=== PATIENT | female | born 1975 | race Caucasian/White ===

== ENCOUNTER 2016-06-21 08:54 | Emergency (ER) | payer BC, OTHER ==
[2016-06-21 09:09] VITALS: BMI 30.2
--- NOTE | 2016-06-21 09:26 | PDOC ---
History of Present Illness <OpalGavino doughertyi - Last Filed: 06/21/16 13:11> - General History Source: Patient Exam Limitations: No Limitations - History of Present Illness Travel History: No Initial Comments: 06/21/16 09:51 41y F history of acid reflux, vertigo presents with a complaint of epigastric pain rating to the throat that she describes as a burning. The patient states that she has a history history of acid reflux but the pain has been significantly worse over the past 4 days in that it is more constant and unremitting, it is worse in the evenings, and the patient saw her primary care doctor yesterday who increased her omeprazole from 20 mg to 40 mg. The patient also has an appointment scheduled with GI on July 04 for further evaluation. The patient endorses nausea occasionally denies any vomiting, fevers, chills, melena, blood per rectum, dysuria. The patient states that the nature of her pain is similar to her acid reflux in the past. There is no associated shortness of breath, worsening of her symptoms on exertion. The patient denies any alcohol abuse, denies any NSAID or aspirin abuse. 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, vertigo - Psycho/Social/Smoking Cessation Hx Suicidal Ideation: No Smoking History: Never smoked Information on smoking cessation initiated: No Hx Alcohol Use: No Drug/Substance Use Hx: No Substance Use Type: None <Will Zuleta - Last Filed: 06/21/16 14:35> - Past Medical History Allergies/Adverse Reactions: Allergies Allergy/AdvReac Type Severity Reaction Status Date / Time No Known Allergies Allergy Verified 06/21/16 09:07 Review of Systems - Review of Systems Able to Perform ROS?: Yes Comments:: 06/21/16 09:53 Constitutional - no reported Fever, Chills, weakness, HEENT: no reported vision changes, sore throat Respiratory: no reported cough, sob, hemoptysis Cardiac: no reported chest pain, palpitations, light headedness, leg swelling Abd/GI: + abd pain, nausea, no reported vomiting, blood per rectum, melena, diarrhea : no reported dysuria, frequency, discharge Musculskelatal - no reported back pain, joint swelling skin - no reported bruising, erythema, rash neurological: no reported headache, numbness, focal weakness, tingling, ataxia, weakness hematologic: no reported anemia, easy bruising, easy bleeding <Merlyn,Will - Last Filed: 06/21/16 14:35> *Physical Exam - Vital Signs Last Vital Signs Temp Pulse Resp BP Pulse Ox 98.1 F 64 17 145/72 99 06/21/16 09:06 06/21/16 09:06 06/21/16 09:06 06/21/16 09:06 06/21/16 09:06 <Edie Joseph - Last Filed: 06/21/16 13:11> - Vital Signs Last Vital Signs Temp Pulse Resp BP Pulse Ox 98.1 F 64 17 145/72 99 06/21/16 09:06 06/21/16 09:06 06/21/16 09:06 06/21/16 09:06 06/21/16 09:06 - Physical Exam Comments: 06/21/16 09:53 GENERAL: The patient is awake, alert, and fully oriented, Nontoxic - in no acute distress. HEAD: Normocephalic, atraumatic. EYES: extraocular movements intact, sclera anicteric, conjunctiva clear. ENT: Normal voice, Moist mucous membranes. NECK: Normal range of motion, supple LUNGS: Breath sounds equal, clear to auscultation bilaterally. No wheezes, no rhonchi, no rales. HEART: Regular rate and rhythm, normal S1 and S2 without murmur, rub or gallop. ABDOMEN: mild epigastric tenderness, neg mcburneys point tenderness, Soft, normoactive bowel sounds. No guarding, no rebound. . No CVA tenderness EXTREMITIES: Normal range of motion, no edema. No clubbing or cyanosis. No cords, erythema, or tenderness. NEUROLOGICAL: No facial assymetry, Normal speech, PSYCH: Normal mood, normal affect. SKIN: Warm, Dry, normal turgor, <Merlyn,Will - Last Filed: 06/21/16 14:35> Heart Score/ECG Review - ECG Impressions Comment:: 06/21/16 13:15 Twelve-lead EKG was performed and reviewed by me. There is normal sinus rhythm with a normal rate. Rate of 62 The axis is normal. The intervals are normal. There is normal R wave progression There are no ST or T wave abnormalities. Impression: Normal twelve-lead EKG <Will Zuleta - Last Filed: 06/21/16 14:35> ED Treatment Course - LABORATORY CBC & Chemistry Diagram: 06/21/16 10:26 06/21/16 10:26 - ADDITIONAL ORDERS Additional order review: Laboratory Results 06/21/16 06/21/16 10:30 10:26 Sodium Cancelled Potassium Cancelled Chloride Cancelled Carbon Dioxide Cancelled Anion Gap Cancelled BUN Cancelled Creatinine Cancelled Creat Clearance w eGFR Cancelled Random Glucose Cancelled Calcium Cancelled Total Bilirubin Cancelled AST Cancelled ALT Cancelled Alkaline Phosphatase Cancelled Total Protein Cancelled Albumin Cancelled Lipase Cancelled Urine Color Ltyellow Urine Appearance Clear Urine pH 7.0 Ur Specific Bethany 1.014 Urine Protein Negative Urine Glucose (UA) Negative Urine Ketones Negative Urine Blood 3+ H Urine Nitrite Negative Urine Bilirubin Negative Urine Urobilinogen Negative Ur Leukocyte Esterase Negative Urine RBC 45 Urine WBC 1 Ur Epithelial Cells Rare Urine Mucus Rare 06/21/16 10:26 RBC 4.83 MCV 86.5 MCHC 33.1 RDW 13.1 MPV 10.7 Neutrophils % 68.4 Lymphocytes % 24.0 Monocytes % 6.2 Eosinophils % 0.5 Basophils % 0.9 - RADIOLOGY Radiology Studies Ordered: 06/21/16 13:11 Gallbladder Ultrasound As reviewed by Dr. Aleksey Rodriguez IMPRESSION: No definite abnormality is identified. - Medications Given in the ED: ED Medications Discontinued Medications Generic Name Dose Route Start Last Admin Trade Name Freq PRN Reason Stop Dose Admin Al Hydroxide/Mg Hydroxide 30 ml 06/21/16 09:27 06/21/16 10:34 Mylanta Suspension - PO 06/21/16 09:28 30 mg ONCE ONE Administration Pantoprazole Sodium 40 mg/ 100 mls @ 200 mls/hr 06/21/16 09:27 06/21/16 10:34 Sodium Chloride IVPB 06/21/16 09:56 200 mls/hr ONCE ONE Administration Sodium Chloride 1,000 mls @ 1,000 mls/hr 06/21/16 09:50 06/21/16 11:00 Normal Saline - IV 06/21/16 10:49 1,000 mls/hr .Q1H ONE Administration <Edie Joseph - Last Filed: 06/21/16 13:11> - LABORATORY CBC & Chemistry Diagram: 06/21/16 10:26 06/21/16 12:40 <Will Zuleta - Last Filed: 06/21/16 14:35> Medical Decision Making - Medical Decision Making 06/21/16 09:53 likely acid reflux, consider possible pancreatitis, acs will treat with protonix, maalox galina r/o pancreatitis, will ck lfts atypical for acs - but will obtain screening ekg will reassess 06/21/16 13:37 pt feeling improved tolerating oral intake labs reviewed US negative for gb pathology will dc with pmd and GI fu will have the pt continue her newly increased dose of omeprazole return precautions were discussed I discussed the physical exam findings, ancillary test results and final diagnoses with the patient. I answered all of the patient's questions. The patient was satisfied with the care received and felt comfortable with the discharge plan and treatment plan. The patient will call their primary care physician within 24 hours to arrange follow-up and will return to the Emergency Department with any new, persistent or worsening symptoms. <Will Zuleta - Last Filed: 06/21/16 14:35> *DC/Admit/Observation/Transfer <Edie Joseph - Last Filed: 06/21/16 13:11> - Discharge Dispostion Admit: No <Will Zuleta - Last Filed: 06/21/16 14:35> Diagnosis at time of Disposition: GERD (gastroesophageal reflux disease) Qualifiers: Esophagitis presence: esophagitis presence not specified Qualified Code(s): K21.9 - Gastro-esophageal reflux disease without esophagitis - Discharge Dispostion Disposition: HOME Condition at time of disposition: Improved - Referrals Referrals: David Bergeron MD [Primary Care Provider] - Yovani Nevarez MD [Staff Physician] - - Patient Instructions Printed Discharge Instructions: GERD Diet, DI for Gastroesophageal Reflux Disease (GERD) Additional Instructions: Return to the emergency department immediately with ANY new, persistent or worsening symptoms including any recurrent abdominal pain, fevers, chills, inability to tolerate oral intake or any other concerns. Stay away from alcohol, spicy foods, caffeine, acidic/sour foods. Take maalox if you have burning for relief. 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 Results were discussed with you. Please make sure your doctor reviews the results of your emergency evaluation. Print Language: LIBERIAN
[2016-06-21] MEDS ORDERED: MAG HYDROX/AL HYDROX/SIMETH 355 ML ORAL.SUSP PO ONE (09:27)
[2016-06-21] MEDS ORDERED: PANTOPRAZOLE SODIUM 40 MG in SODIUM CHLORIDE 100 ML IVPB ONE (09:27)
[2016-06-21] MEDS ORDERED: SODIUM CHLORIDE 1,000 ML IV ONE (09:50)
[2016-06-21] MEDS ORDERED: MAG HYDROX/AL HYDROX/SIMETH 30 ML UNIT-DOSE CUP ONE (10:33)
[2016-06-21] MEDS ORDERED: PANTOPRAZOLE SODIUM 40 MG VIAL ONE (10:33)
[2016-06-21 10:40] LABS: BASOPHIL 0.9 % (0-2.0); EOSINOPHIL 0.5 % (0-4.5); MCH 28.6 pg (25.7-33.7); MCHC 33.1 g/dl (32.0-36.0); MEAN CELL VOLUME 86.5 fl (80-96); MEAN PLT VOLUME 10.7 fl (7.5-11.1); NEUTROPHILS 68.4 % (42.8-82.8); PLATELET COUNT 237 K/MM3 (134-434); RDW 13.1 % (11.6-15.6); WHITE BLOOD COUNT 6.2 K/mm3 (4.0-10.0)
[2016-06-21 11:08] LABS: URINE APPEARANCE CLEAR; URINE BILIRUBIN NEGATIVE (NEGATIVE); URINE COLOR LTYELLOW; URINE GLUCOSE (UA) NEGATIVE (NEGATIVE); URINE KETONE NEGATIVE (NEGATIVE); URINE LEUK ESTERASE NEGATIVE (NEGATIVE); URINE NITRITE NEGATIVE (NEGATIVE); URINE PROTEIN NEGATIVE (NEGATIVE); URINE UROBILINOGEN NEGATIVE E.U./dl (0.2-1.0)
[2016-06-21 11:15] LABS: URINE BLOOD 3+ (NEGATIVE)
[2016-06-21 11:17] LABS: URINE MUCUS RARE; URINE RBC 45 /hpf (0-3); URINE WBC 1 /hpf (3-5)
[2016-06-21 13:19] LABS: ALBUMIN 3.3 g/dl (3.4-5.0); ALK PHOS 71 U/L (45-117); ANION GAP 10 (8-16); BILIRUBIN,TOTAL 0.4 mg/dL (0.2-1.0); CALCIUM 8.3 mg/dL (8.5-10.1); CO2 24 mmol/L (21-32); CREATININE 0.6 mg/dL (0.55-1.02); GLUCOSE,RANDOM 81 mg/dL (74-106); SGOT/AST 10 U/L (15-37); SGPT/ALT 14 U/L (12-78); TOT PROT 6.4 g/dl (6.4-8.2)
[2016-06-21 14:07] VITALS: BP 132/76; PULSE 72; TEMP 2
--- NOTE | 2016-06-21 20:59 | EKG ---
Test Reason : Blood Pressure : / mmHG Vent. Rate : 062 BPM Atrial Rate : 062 BPM P-R Int : 152 ms QRS Dur : 068 ms QT Int : 410 ms P-R-T Axes : 081 061 049 degrees QTc Int : 416 ms NORMAL SINUS RHYTHM NORMAL ECG NO PREVIOUS ECGS AVAILABLE Confirmed by CHING CALLE MD ([id number]) on 06/21/2016 8:58:57 PM Referred By: Confirmed By:CHING CALLE MD
== END 2016-06-21 14:36 | disposition home or self-care (01) ==
LOC: JER 08:54
PROC: 3E0337Z Introduction of Electrolytic and Water Balance Substance into Peripheral Vein, Percutaneous Approach (ICD-10-PCS; principal; 2016-06-21)
PROC: 3E033GC Introduction of Other Therapeutic Substance into Peripheral Vein, Percutaneous Approach (ICD-10-PCS; 2016-06-21)
DX: K21.9 Gastro-esophageal reflux disease without esophagitis (principal)
CPT/HCPCS: 36415; 76705-TC; 80053; 81003; 81015; 83690; 84703; 85025; 93005; 93010; 99282-25

== ENCOUNTER → 2016-09-26 | Emergency (ER) | payer BC, OTHER ==
[~2016-09-26] MED LIST: ALBUTEROL SO4 2.5/IPRATROPIUM 0.5 INH SOL 3 ML VIAL.NEB. NEB ONE; LORATADINE 10 MG TABLET ONE; LORATADINE 10 MG TABLET PO ONE
[2016-09-26 14:14] VITALS: BP 117/73; PULSE 59; TEMP 98; BMI 29.9
--- NOTE | 2016-09-26 14:30 | PDOC ---
History of Present Illness - General History Source: Patient Exam Limitations: No Limitations - History of Present Illness Initial Comments: CHIEF COMPLAINT: 41 y/o afebrile female with no significant PMH c/o SOB and cough for the past 3 days. HISTORY OF PRESENT ILLNESS: The patient states a dry cough started first. She then began feeling short of breath if she tries talking for too long. She states it feels like she's trying to catch her breath. She denies all other symptoms including f/c, MACIEL, neck pain, runny nose, watery eyes, sore throat, n/v /d, CP, palpitations, abd pain, back pain. The patient is a never smoker. Vital signs on arrival are within normal limits. REVIEW OF SYSTEMS: GENERAL/CONSTITUTIONAL: No fever/chills. No weakness. No weight change. HEAD, EYES, EARS, NOSE AND THROAT: No change in vision. No ear pain or discharge. No sore throat. CARDIOVASCULAR: No chest pain. +SOB RESPIRATORY: +dry cough. No wheezing, or hemoptysis. GASTROINTESTINAL: No abd pain, nausea, vomiting, diarrhea. GENITOURINARY: No dysuria, frequency, or change in urination. MUSCULOSKELETAL: No joint or muscle swelling or pain. No neck or back pain. SKIN: No rash or easy bruising. NEUROLOGIC: No headache, vertigo, loss of consciousness, or loss of sensation. PHYSICAL EXAM: GENERAL: The patient is awake, alert, and fully oriented, in no acute distress. She is very well appearing, ambulatory, in NAD or obvious discomfort. No cough in the ER. Pt speaks in full sentences without difficulty. HEAD: Normal with no signs of trauma. ENT: Pupils equal, round and reactive to light, extraocular movements intact, sclera anicteric, conjunctiva clear. Neck supple. LUNGS: Clear to auscultation bilaterally. Normal excursion. No respiratory distress or use of accessory muscles. CV: RRR, S1/S2, no MRG. Cap refill < 2 sec. ABDOMEN: Soft, non-distended, non-tender even to deep palpation, no hepatomegaly or splenomegaly, no masses. EXTREMITIES: Normal range of motion, no edema. NEUROLOGICAL: Normal speech, normal gait. CN II-XII grossly intact. PSYCH: Normal mood, normal affect. SKIN: Warm, dry, normal turgor, no rashes or lesions noted. <Mary Joaquin - Last Filed: 09/26/16 16:32> <Mirela Ocampo - Last Filed: 09/27/16 15:41> - General Chief Complaint: Chest Pain Stated Complaint: CHEST PAIN/DIFFICULTY BREATHING Time Seen by Provider: 09/26/16 14:25 Past History - Past Medical History Other medical history: VERTIGO - Psycho/Social/Smoking Cessation Hx Suicidal Ideation: No Smoking History: Never smoked Hx Alcohol Use: No Drug/Substance Use Hx: No Substance Use Type: None <Mary Joaquin - Last Filed: 09/26/16 16:32> <Mirela Ocampo - Last Filed: 09/27/16 15:41> - Past Medical History Allergies/Adverse Reactions: Allergies Allergy/AdvReac Type Severity Reaction Status Date / Time No Known Allergies Allergy Verified 09/26/16 13:27 Home Medications: Ambulatory Orders Albuterol Sulfate Inhaler - [Ventolin HFA Inhaler -] 1 puff IH Q6H #1 inhaler *Physical Exam - Vital Signs Last Vital Signs Temp Pulse Resp BP Pulse Ox 98.0 F 59 L 18 117/73 98 09/26/16 13:25 09/26/16 13:25 09/26/16 13:25 09/26/16 13:25 09/26/16 13:25 <Mary Joaquin - Last Filed: 09/26/16 16:32> - Vital Signs Last Vital Signs Temp Pulse Resp BP Pulse Ox 98.0 F 59 L 18 117/73 98 09/26/16 13:25 09/26/16 13:25 09/26/16 13:25 09/26/16 13:25 09/26/16 13:25 <Mirela Ocampo - Last Filed: 09/27/16 15:41> ED Treatment Course - Medications Given in the ED: ED Medications Discontinued Medications Generic Name Dose Route Start Last Admin Trade Name Freq PRN Reason Stop Dose Admin Albuterol/Ipratropium 1 amp 09/26/16 14:37 09/26/16 14:57 Duoneb - NEB 09/26/16 14:38 1 amp ONCE ONE Administration Loratadine 10 mg 09/26/16 14:37 09/26/16 15:01 Claritin - PO 09/26/16 14:38 10 mg ONCE ONE Administration <Mirela Ocampo - Last Filed: 09/27/16 15:41> Medical Decision Making - Medical Decision Making A/P: 41 y/o afebrile female with SOB and dry cough for the past 3 days. Suspect possible seasonal allergies. Plan is as follows: 1. Duoneb 2. PO Claritin The patient states she feels much better after having claritin and Duoneb. I will discharge her to home with rx for albuterol inhaler and suggested she take daily OTC allergy meds for the next week. Instructed her to return to the ER immediately with any worsening or concerning symptoms. The patient verbalizes understanding of all instructions, has no further questions and is awaiting discharge. <Mary Joaquin - Last Filed: 09/26/16 16:32> *DC/Admit/Observation/Transfer <Mary Joaquin - Last Filed: 09/26/16 16:32> - Attestations Physician Attestion: I reviewed the case with the mid-level practitioner and agree with the mid- level practitioner's assessment, diagnosis and disposition. <Mirela Ocampo - Last Filed: 09/27/16 15:41> Diagnosis at time of Disposition: Shortness of breath, Cough Seasonal allergies Qualifiers: Allergic rhinitis trigger: unspecified Qualified Code(s): J30.2 - Other seasonal allergic rhinitis - Discharge Dispostion Disposition: HOME Condition at time of disposition: Improved - Prescriptions Prescriptions: Albuterol Sulfate Inhaler - [Ventolin HFA Inhaler -] 1 puff IH Q6H #1 inhaler - Referrals Referrals: David Bergeron MD [Primary Care Provider] - Call tomorrow - Patient Instructions Printed Discharge Instructions: DI for Shortness of Breath, DI for Cough -- Adult, Allergies (Alternative Therapy) Additional Instructions: Discharge Instructions: -A prescription for an inhaler has been sent to your pharmacy; please take as prescribed -Take over the counter Claritin or Zyrtec every morning for the next 1 week -Call Dr. Bergeron on Thursday to schedule follow up appointment -Return to the ER immediately with any worsening or concerning symptoms - Post Discharge Activity Work/School Note: Back to Work
--- NOTE | 2016-09-27 19:19 | EKG ---
Test Reason : Blood Pressure : / mmHG Vent. Rate : 064 BPM Atrial Rate : 064 BPM P-R Int : 142 ms QRS Dur : 070 ms QT Int : 428 ms P-R-T Axes : -55 038 019 degrees QTc Int : 441 ms UNUSUAL P AXIS, POSSIBLE ECTOPIC ATRIAL RHYTHM ABNORMAL ECG WHEN COMPARED WITH ECG OF 21-JUN-2016 12:49, ECTOPIC ATRIAL RHYTHM HAS REPLACED SINUS RHYTHM NONSPECIFIC T WAVE ABNORMALITY NOW EVIDENT IN INFERIOR LEADS Confirmed by CHING CALLE MD ([id number]) on 09/27/2016 7:18:24 PM Referred By: Confirmed By:CHING CALLE MD
--- NOTE | 2016-10-04 15:41 | EKG ---
Test Reason : Blood Pressure : / mmHG Vent. Rate : 055 BPM Atrial Rate : 055 BPM P-R Int : 156 ms QRS Dur : 070 ms QT Int : 424 ms P-R-T Axes : 078 048 055 degrees QTc Int : 405 ms SINUS BRADYCARDIA POSSIBLE LEFT ATRIAL ENLARGEMENT LOW VOLTAGE QRS BORDERLINE ECG WHEN COMPARED WITH ECG OF 21-JUN-2016 12:49, NO SIGNIFICANT CHANGE WAS FOUND Confirmed by GEOVANNA GALLEGO, YARA ([id number]) on 10/04/2016 3:41:14 PM Referred By: Confirmed By:YARA AUSTIN MD
== END | disposition home or self-care (01) ==
LOC: JER 13:23
PROC: 3E0F7GC Introduction of Other Therapeutic Substance into Respiratory Tract, Via Natural or Artificial Opening (ICD-10-PCS; principal; 2016-09-26)
DX: J30.2 Other seasonal allergic rhinitis (principal)
CPT/HCPCS: 93005; 93010; 99281-25

== ENCOUNTER 2016-10-01 15:16 | Emergency (ER) | payer BC, OTHER ==
[2016-10-01 15:24] VITALS: BMI 29.9
[2016-10-01] MEDS ORDERED: ALBUTEROL SO4 2.5/IPRATROPIUM 0.5 INH SOL 3 ML VIAL.NEB. NEB ONE ×2 (16:28→16:33)
--- NOTE | 2016-10-01 16:44 | PDOC ---
History of Present Illness - General History Source: Patient Exam Limitations: No Limitations - History of Present Illness Initial Comments: 10/01/16 17:25 The patient is a 41-year-old female, with a history of seasonal allergies, who presents to the ED with chest pain and tightness and shortness of breath. The patient was seen in the ED 2 days ago and was prescribed an albuterol inhaler ( took once with no improvement) and singulair for asthma/bronchitis. Pt saw Dr. David Killian yesterday and had an EKG performed that came out normal. PCP also prescribed the patient montekulast. Pt reports to the ED today with persistent chest pain and tightness accompanied by sore throat (only at night) and tingling in fingers. Pt reports that her last stress test was a month ago that was normal. Pt denies any nausea, vomiting, diarrhea, or abdominal pain. Pt denies any leg swelling. Denies any hx of pe or dvt Family Hx: Heart Disease <Komal Orozco - Last Filed: 10/01/16 17:25> <Lisa Mcmullen - Last Filed: 10/01/16 19:42> - General Chief Complaint: Shortness of Breath Stated Complaint: SOB Past History <Komal Orozco - Last Filed: 10/01/16 17:25> - Past Medical History Seizures: Yes (CHILD) Other medical history: VERTIGO - Psycho/Social/Smoking Cessation Hx Anxiety: No Suicidal Ideation: No Smoking History: Never smoked Hx Alcohol Use: No Drug/Substance Use Hx: No Substance Use Type: None <Lisa Mcmullen - Last Filed: 10/01/16 19:42> - Past Medical History Allergies/Adverse Reactions: Allergies Allergy/AdvReac Type Severity Reaction Status Date / Time No Known Allergies Allergy Verified 10/01/16 15:24 Home Medications: Ambulatory Orders Albuterol Sulfate Inhaler - [Ventolin HFA Inhaler -] 1 puff IH Q6H #1 inhaler Fluticasone Prop 0.05% Nasal [Flonase -] 1 spray NS DAILY #1 bot 10/01/16 Montelukast Na [Singulair -] 10 mg PO HS 10/01/16 Review of Systems - Review of Systems Able to Perform ROS?: Yes Comments:: 10/01/16 17:26 GENERAL/CONSTITUTIONAL: No fever or chills. No weakness. HEAD, EYES, EARS, NOSE AND THROAT: No change in vision. No ear pain or discharge. +sore throat. CARDIOVASCULAR: +chest pain, shortness of breath. RESPIRATORY: No cough, wheezing, or hemoptysis. SKIN: No rash GASTROINTESTINAL: No nausea, vomiting, diarrhea or constipation. GENITOURINARY: No dysuria, frequency, or change in urination. MUSCULOSKELETAL: No joint or muscle swelling or pain. No neck or back pain. NEUROLOGIC: No headache, vertigo, loss of consciousness. +finger tingling ENDOCRINE: No increased thirst. No abnormal weight change. HEMATOLOGIC/LYMPHATIC: No anemia, easy bleeding, or history of blood clots. ALLERGIC/IMMUNOLOGIC: No hives or skin allergy. <Komal Orozco - Last Filed: 10/01/16 17:25> *Physical Exam - Vital Signs Last Vital Signs Temp Pulse Resp BP Pulse Ox 99.6 F 78 24 126/68 99 10/01/16 15:22 10/01/16 15:22 10/01/16 15:22 10/01/16 15:22 10/01/16 15:22 - Physical Exam Comments: 10/01/16 17:26 GENERAL: Awake, alert, and fully oriented, in no acute distress HEAD: No signs of trauma ENT: Auricles normal inspection, hearing grossly normal. +turbinate enlargement , posterior pharynx cobblestoning. EYES: PERRLA, EOMI, sclera anicteric, conjunctiva clear without exudates. Moist mucosa. NECK: Normal ROM, supple, no lymphadenopathy, JVD, or masses LUNGS: Breath sounds equal, clear to auscultation bilaterally. No wheezes, and no crackles HEART: Regular rate and rhythm, normal S1 and S2, no murmurs, rubs or gallops ABDOMEN: Soft, nontender, normoactive bowel sounds. No guarding, no rebound. No masses EXTREMITIES: Normal range of motion, no edema. No clubbing or cyanosis. No cords, erythema, or tenderness NEUROLOGICAL: Cranial nerves II through XII grossly intact. Normal speech. SKIN: Warm, Dry, normal turgor, no rashes or lesions noted <Komal Orozco - Last Filed: 10/01/16 17:25> - Vital Signs Last Vital Signs Temp Pulse Resp BP Pulse Ox 99.6 F 78 24 126/68 99 10/01/16 15:22 10/01/16 15:22 10/01/16 15:22 10/01/16 15:22 10/01/16 15:22 <Lisa Mcmullen - Last Filed: 10/01/16 19:42> ED Treatment Course - LABORATORY CBC & Chemistry Diagram: 10/01/16 16:49 10/01/16 16:49 - ADDITIONAL ORDERS Additional order review: Laboratory Results 10/01/16 16:55 Urine HCG, Qual Negative - Medications Given in the ED: ED Medications Discontinued Medications Generic Name Dose Route Start Last Admin Trade Name Freq PRN Reason Stop Dose Admin Albuterol/Ipratropium 1 amp 10/01/16 16:28 10/01/16 16:35 Dumiriam - NEB 10/01/16 16:29 1 amp ONCE ONE Administration <Komal Orozco - Last Filed: 10/01/16 17:25> - LABORATORY CBC & Chemistry Diagram: 10/01/16 16:49 10/01/16 16:49 - RADIOLOGY Radiology Studies Ordered: Category Date Time Status CHEST PA & LAT [RAD] Stat Radiology 10/01/16 16:28 Ordered - Medications Given in the ED: ED Medications Discontinued Medications Generic Name Dose Route Start Last Admin Trade Name Freq PRN Reason Stop Dose Admin Albuterol/Ipratropium 1 amp 10/01/16 16:28 10/01/16 16:35 Duoneb - NEB 10/01/16 16:29 1 amp ONCE ONE Administration <Lisa Mcmullen - Last Filed: 10/01/16 19:42> Medical Decision Making - Medical Decision Making 10/01/16 16:39 41 yo F with h/o seasonal allergies here wtih c/o chest pain and tightness, was seen 2 days ago in ed, given albuterol inhaler for bronchitis/ asthma. pt no known ho tobacco use. no prior asthma. saw Dr. Fernando Killian yestserday, who performed ekg which was normal. added montelukast. pt states today still having chest pain and tightness. does have pm sore throat. no fever no chills. no leg swelling no h/o pe or dvt. no travel. does have fam h/o cad in 40's. no improvement with albuterol used once, or singulair. does have tinling in fingers. had stress test onemonth ago which was normal. 10/01/16 16:44 physical exam awake alert . bilat nasal turbinate enlargement. post pharynx cobblestoning. lungs clear bilaterally. no exudate. lungs clear. heart RRR. abd soft NT. legs no edema no calf tenderness. differential: infection, allergici rhinitis/ bronchitis, pna, acs ( less likely ) pe. plan d dimer ekg trop labs. cxr reassess. will d/w dr killian. 10/01/16 19:26 pt labs unremarkablc. cxr negative. d dimer negative. trop and ekg normal. will dc home follow up wt dr. killian. 10/01/16 19:40 d/w dr. killian. <Lisa Mcmullen - Last Filed: 10/01/16 19:42> *DC/Admit/Observation/Transfer - Attestations Scribe Attestion: 10/01/16 17:29 Documentation prepared by Komal Orozco, acting as medical services coordinator for Lisa Mcmullen MD. <Komal Orozco - Last Filed: 10/01/16 17:25> - Discharge Dispostion Admit: No <Lisa Mcmullen - Last Filed: 10/01/16 19:42> Diagnosis at time of Disposition: Allergic rhinitis, Bronchitis - Discharge Dispostion Disposition: HOME - Prescriptions Prescriptions: Fluticasone Prop 0.05% Nasal [Flonase -] 1 spray NS DAILY #1 bot - Referrals Referrals: David Killian MD [Primary Care Provider] - - Patient Instructions Printed Discharge Instructions: Acute Bronchitis, Allergic Rhinitis Additional Instructions: use flonase one spray each nostril daily. 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 continue using albuterol inhaler 2 puffs every 6 hours as needed for wheezing or cough. continue taking montelukast. all test today and chest xray are normal. return for any problems or concerns.
[2016-10-01 16:52] LABS: BASOPHIL 0.4 % (0-2.0); EOSINOPHIL 0.1 % (0-4.5); MCHC 32.9 g/dl (32.0-36.0); MEAN CELL VOLUME 88.1 fl (80-96); MEAN PLT VOLUME 9.8 fl (7.5-11.1); NEUTROPHILS 82.3 % (42.8-82.8); PLATELET COUNT 230 K/MM3 (134-434); WHITE BLOOD COUNT 14.2 K/mm3 (4.0-10.0)
[2016-10-01 17:30] LABS: ALBUMIN 3.8 g/dl (3.4-5.0); ANION GAP 9 (8-16); CALCIUM 9.4 mg/dL (8.5-10.1); CO2 26 mmol/L (21-32); COCKROFT - GAULT 114.3505; CREATININE 0.7 mg/dL (0.55-1.02); GLUCOSE,RANDOM 88 mg/dL (74-106); SGOT/AST 16 U/L (15-37); SGPT/ALT 16 U/L (12-78)
[2016-10-01 17:34] LABS: ALK PHOS 89 U/L (45-117); BILIRUBIN,TOTAL 0.6 mg/dL (0.2-1.0); TOT PROT 7.4 g/dl (6.4-8.2); TROPONIN I < 0.02 ng/ml (0.00-0.05)
[2016-10-01 20:07] VITALS: BP 124/88; PULSE 72; TEMP 98.2
--- NOTE | 2016-10-02 10:32 | EKG ---
Test Reason : Blood Pressure : / mmHG Vent. Rate : 067 BPM Atrial Rate : 067 BPM P-R Int : 136 ms QRS Dur : 072 ms QT Int : 416 ms P-R-T Axes : -45 049 016 degrees QTc Int : 439 ms UNUSUAL P AXIS, POSSIBLE ECTOPIC ATRIAL RHYTHM ABNORMAL ECG WHEN COMPARED WITH ECG OF 26-SEP-2016 15:25, NO SIGNIFICANT CHANGE WAS FOUND Confirmed by LOREN MANE MD ([id number]) on 10/02/2016 10:32:11 AM Referred By: Confirmed By:LOREN MANE MD
== END 2016-10-01 20:07 | disposition home or self-care (01) ==
LOC: JER 15:16
PROC: 3E0F7GC Introduction of Other Therapeutic Substance into Respiratory Tract, Via Natural or Artificial Opening (ICD-10-PCS; principal; 2016-10-01)
DX: J40 Bronchitis, not specified as acute or chronic (principal); J30.2 Other seasonal allergic rhinitis
CPT/HCPCS: 36415; 71020-TC; 80053; 82550; 84484; 84703; 85025; 85379; 93005; 93010; 99284-25

== ENCOUNTER 2016-12-17 21:12 | Emergency (ER) | payer BC, OTHER ==
[2016-12-17 21:21] VITALS: BP 117/77; PULSE 64; TEMP 98; BMI 25.4
--- NOTE | 2016-12-17 23:30 | PDOC ---
Attending Attestation - Medical Decision Making 12/17/16 23:[address] David Bergeron (via answering service) and patient's case was discussed with Dr. Hipolito Costa. <Ifeoma Mendoza - Last Filed: 12/17/16 23:34> - Resident Resident Name: Hipolito Costa - ED Attending Attestation I have performed the following: I have examined & evaluated the patient, The case was reviewed & discussed with the resident, I agree w/resident's findings & plan, Exceptions are as noted - Physicial Exam PE: 12/18/16 19:30 Physical Exam General Appearance: Yes: Appropriately Dressed. No: Apparent Distress, Intoxicated HEENT: positive: EOMI, TOI, Normal ENT Inspection, Normal Voice, TMs Normal, Pharynx Normal. negative: Pale Conjunctivae, Photophobia, Scleral Icterus (R), Scleral Icterus (L) Neck: positive: Trachea midline, Normal Thyroid, Supple. negative: Tender, Rigid, Carotid bruit, Stridor, Lymphadenopathy (R), Lymphadenopathy (L), Thyromegaly Respiratory/Chest: positive: Lungs Clear, Normal Breath Sounds. negative: Chest Tender, Respiratory Distress, Accessory Muscle Use, Labored Respiration, RES, Crackles, Rales, Rhonchi, Stridor, Wheezing, Dullness Cardiovascular: positive: Regular Rhythm, Regular Rate, S1, S2. negative: Edema , JVD, Murmur, Bradycardia, Tachycardia Vascular Pulses: Dorsalis-Pedis (R): 2+, Doralis-Pedis (L): 2+ Gastrointestinal/Abdominal: positive: Normal Bowel Sounds, Flat, Soft. negative : Tender, Organomegaly, Pulsatile Mass, Increased Bowel Sounds, Decreased BS, Distended, Guarding, Rebound, Hernia, Hepatomegaly, Spleenomegaly Lymphatic: negative: Adenopathy, Tenderness Musculoskeletal: positive: Normal Inspection. negative: CVA Tenderness, Decreased Range of Motion Extremity: positive: Normal Capillary Refill, Normal Inspection, Normal Range of Motion, Pelvis Stable. negative: Tender, Pedal Edema, Swelling, Erythema Integumentary: positive: Normal Color, Dry, Warm. 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 negative: EOM Palsy, Facial Droop, Sensory Deficit <Donny Narvaez - Last Filed: 12/18/16 19:31>
--- NOTE | 2016-12-17 23:38 | PDOC ---
History of Present Illness - General Chief Complaint: Lightheaded Stated Complaint: FATIGUE Time Seen by Provider: 12/17/16 23:10 History Source: Patient Exam Limitations: No Limitations - History of Present Illness Initial Comments: 12/17/16 23:30 The patient is a 41F with a PMH of vertigo who presents with headache x 5 days. She is a patient of Dr. David Bergeron who got a phone call from the patient and wanted the patient to come to the ED for further evaluation. Her headache starts unilaterally on the temporal side, then becomes bilaterally, is constant , worse at night, is described as a sharp and pressure-like headache, and is associated with nausea and lightheadedness. She was worked up 4 months ago for vertigo. She also is complaining of numbness in her R middle toe. All: none Past History - Past Medical History Allergies/Adverse Reactions: Allergies Allergy/AdvReac Type Severity Reaction Status Date / Time No Known Allergies Allergy Verified 12/17/16 21:18 Home Medications: Ambulatory Orders NK [No Known Home Medication] 12/18/16 Seizures: Yes (CHILD) - Psycho/Social/Smoking Cessation Hx Anxiety: No Suicidal Ideation: No Smoking History: Never smoked Have you smoked in the past 12 months: No Information on smoking cessation initiated: No Hx Alcohol Use: No Drug/Substance Use Hx: No Substance Use Type: None Review of Systems - Review of Systems Able to Perform ROS?: Yes Is the patient limited Ukrainian proficient: No Constitutional: No: Chills, Fever HEENTM: Yes: Blurred Vision. No: Double Vision, Ear Pain, Nose Pain, Throat Pain Respiratory: No: Shortness of Breath Cardiac (ROS): No: Chest Pain ABD/GI: Yes: Constipated, Nausea. No: Diarrhea, Vomiting, Other (abd pain) : No: Burning, Dysuria, Discharge, Frequency Neurological: Yes: Headache, Numbness (in R middle toe). No: Tingling, Weakness *Physical Exam - Vital Signs Last Vital Signs Temp Pulse Resp BP Pulse Ox 98.0 F 64 18 117/77 100 12/17/16 21:19 12/17/16 21:19 12/17/16 21:19 12/17/16 21:19 12/17/16 21:19 - Physical Exam General Appearance: Yes: Nourished, Appropriately Dressed. No: Apparent Distress HEENT: positive: Normal Voice, Hearing Grossly Normal Neck: positive: Supple. negative: Decreased range of motion, Rigidity, Tender lateral, Tender midline Respiratory/Chest: positive: Lungs Clear, Normal Breath Sounds. negative: Chest Tender, Respiratory Distress, Accessory Muscle Use, Labored Respiration Cardiovascular: positive: Regular Rhythm, Regular Rate, S1, S2. negative: Bradycardia, Tachycardia, Diastolic Murmur, Systolic Murmur Gastrointestinal/Abdominal: positive: Flat, Soft. negative: Tender, Protuberent , Distended, Guarding, Rebound, Tenderness Musculoskeletal: negative: CVA Tenderness, CVA Tenderness (R), CVA Tenderness (L ) Extremity: positive: Normal Inspection, Normal Range of Motion, Pelvis Stable. negative: Swelling, Calf Tenderness Integumentary: positive: Dry, Warm. 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 negative: Abnormal Cranial NS, EOM Palsy, Facial Droop, Sensory Deficit, Confused, Disoriented ED Treatment Course - LABORATORY CBC & Chemistry Diagram: 12/18/16 00:30 12/18/16 00:30 Medical Decision Making - Medical Decision Making 12/17/16 23:54 The patient is a 41F with a PMH of vertigo who is presenting with 5 days of headache, lightheadedness, and nausea. I spoke with Dr. Bergeron and he agrees with the plan for basic labs, imaging, and a sed rate. I have ordered these and will reassess the patient. 12/18/16 02:[address] is negative. All labs WNL. Will update patient and inform the patient to f/u with Dr. Bergeron tomorrow. *DC/Admit/Observation/Transfer Diagnosis at time of Disposition: Headache Qualifiers: Headache type: unspecified Headache chronicity pattern: acute headache Intractability: not intractable Qualified Code(s): R51 - Headache - Discharge Dispostion Disposition: HOME Condition at time of disposition: Improved Admit: No - Patient Instructions Printed Discharge Instructions: Migraine -- Adult, Vertigo (Alternative Therapy ) Additional Instructions: Please return to the ER if symptoms persist, worsen, or if new symptoms arise. Please follow up with Dr. Bergeron tomorrow. Call in the morning for an appointment and inform them you were in the ER. - Attestations Physician Attestion: 12/18/16 03:07 I, Dr. Hipolito Costa, attest that this document has been prepared under my direction and personally reviewed by me in its entirety. I further attest, that it accurately reflects all work, treatment, procedures and medical decision -making performed by me.
[2016-12-18 00:57] LABS: BASOPHIL 0.2 % (0-2.0); EOSINOPHIL 4.3 % (0-4.5); MCHC 33.7 g/dl (32.0-36.0); MEAN CELL VOLUME 89.1 fl (80-96); MEAN PLT VOLUME 10.6 fl (7.5-11.1); NEUTROPHILS 57.8 % (42.8-82.8); PLATELET COUNT 198 K/MM3 (134-434); WHITE BLOOD COUNT 9.1 K/mm3 (4.0-10.0)
[2016-12-18 01:18] LABS: ALBUMIN 3.5 g/dl (3.4-5.0); ANION GAP 6 (8-16); BILIRUBIN,TOTAL 0.3 mg/dL (0.2-1.0); CALCIUM 8.8 mg/dL (8.5-10.1); CO2 29 mmol/L (21-32); CREATININE 0.6 mg/dL (0.55-1.02); GLUCOSE,RANDOM 97 mg/dL (74-106); SGOT/AST 9 U/L (15-37); SGPT/ALT 13 U/L (12-78); TOT PROT 6.6 g/dl (6.4-8.2)
[2016-12-18 01:19] LABS: ALK PHOS 72 U/L (45-117)
--- NOTE | 2016-12-18 10:53 | EKG ---
Test Reason : Blood Pressure : / mmHG Vent. Rate : 056 BPM Atrial Rate : 056 BPM P-R Int : 152 ms QRS Dur : 066 ms QT Int : 418 ms P-R-T Axes : 081 061 050 degrees QTc Int : 403 ms SINUS BRADYCARDIA WITH SINUS ARRHYTHMIA POSSIBLE LEFT ATRIAL ENLARGEMENT LOW VOLTAGE QRS BORDERLINE ECG WHEN COMPARED WITH ECG OF 01-OCT-2016 16:58, SINUS RHYTHM HAS REPLACED ECTOPIC ATRIAL RHYTHM Confirmed by ANTONIETTA GALLEGO, LOREN ([id number]) on 12/18/2016 10:53:27 AM Referred By: Confirmed By:LOREN MANE MD
== END 2016-12-18 03:40 | disposition home or self-care (01) ==
LOC: JER 21:12
DX: R51 Headache (principal)
CPT/HCPCS: 36415; 70450-TC; 80053; 84703; 85025; 85651; 93005; 93010; 99283-25

== ENCOUNTER 2017-08-19 20:04 | Emergency (ER) | payer BC, OTHER ==
--- NOTE | 2017-08-19 20:30 | PDOC ---
Rapid Medical Evaluation Time Seen by Provider: 08/19/17 20:28 Medical Evaluation: Allergies Allergy/AdvReac Type Severity Reaction Status Date / Time No Known Allergies Allergy Verified 12/17/16 21:18 08/19/17 20:28 I have performed a brief in-person evaluation of this patient. The patient presents with a chief complaint of: coughing x 2 days, "lots of phlegm" Pertinent physical exam findings: well appearing, lungs ctab I have ordered the following: nothing The patient will proceed to the ED for further evaluation. Discharge Disposition - Diagnosis Cough - Referrals - Patient Instructions - Post Discharge Activity
[2017-08-19 20:32] VITALS: BP 119/67; PULSE 80; TEMP 98.5; BMI 28.3
--- NOTE | 2017-08-19 22:50 | PDOC ---
History of Present Illness - General Chief Complaint: Shortness of Breath Stated Complaint: SHORTNESS OF BREATH Time Seen by Provider: 08/19/17 20:28 History Source: Patient Exam Limitations: No Limitations - History of Present Illness Initial Comments: 08/19/17 22:46 42-year-old woman past medical history presents emergency Department with 4 days of dry mildly productive cough. Patient states she did feel more mucus moving but is unable to fully expectorate the phlegm. She denies shortness of breath, chest pain, headaches, dizziness, abdominal pain, nausea, vomiting. Past History - Past Medical History Allergies/Adverse Reactions: Allergies Allergy/AdvReac Type Severity Reaction Status Date / Time No Known Allergies Allergy Verified 08/19/17 20:29 Home Medications: Ambulatory Orders NK [No Known Home Medication] 12/18/16 COPD: No DVT: No Dementia: No Seizures: Yes (CHILD) - Immunization History Immunization Up to Date: Yes - Suicide/Smoking/Psychosocial Hx Smoking History: Never smoked Have you smoked in the past 12 months: No Information on smoking cessation initiated: No Hx Alcohol Use: No Drug/Substance Use Hx: No Substance Use Type: None Review of Systems - Review of Systems Able to Perform ROS?: Yes Is the patient limited Nepalese proficient: No Constitutional: No: Symptoms Reported HEENTM: No: Symptoms Reported Respiratory: Yes: See HPI Cardiac (ROS): No: Symptoms Reported ABD/GI: No: Symptoms Reported : No: Symptoms Reported Musculoskeletal: No: Symptoms Reported Integumentary: No: Symptoms Reported Neurological: No: Symptoms reported Endocrine: No: Symptoms Reported *Physical Exam - Vital Signs Last Vital Signs Temp Pulse Resp BP Pulse Ox 98.5 F 80 22 119/67 100 08/19/17 20:29 08/19/17 20:29 08/19/17 20:29 08/19/17 20:29 08/19/17 20:29 - Physical Exam General Appearance: Yes: Appropriately Dressed. No: Apparent Distress HEENT: positive: Normal ENT Inspection Neck: positive: Trachea midline, Supple Respiratory/Chest: positive: Lungs Clear, Normal Breath Sounds. negative: Respiratory Distress, Accessory Muscle Use Cardiovascular: positive: Regular Rhythm, Regular Rate. negative: Murmur Gastrointestinal/Abdominal: positive: Normal Bowel Sounds, Soft. negative: Tender Musculoskeletal: positive: Normal Inspection. negative: CVA Tenderness Extremity: positive: Normal Capillary Refill, Normal Inspection Integumentary: positive: Normal Color, Dry, Warm Neurologic: positive: Alert, Normal Response Medical Decision Making - Medical Decision Making 08/19/17 22:47 A/P: 42-year-old woman without significant past medical history with 4 days of dry mildly productive cough Oropharynx clear without erythema or exudates. Respirations even and unlabored. Patient speaking in full sentences. Lungs clear to auscultation bilaterally. Upper airway mucus movement auscultated RRR. S1 and S2 present. No murmur, rub or gallop noted. Symptoms consistent with bronchitis. Patient educated to symptomatically treatment and patient understands why antibiotics will not be prescribed for this. Patient verbalizes understanding of discharge instructions and strict return precautions provided. *DC/Admit/Observation/Transfer Diagnosis at time of Disposition: Bronchitis - Discharge Dispostion Disposition: HOME Condition at time of disposition: Stable Admit: No - Referrals Referrals: David Bergeron MD [Primary Care Provider] - - Patient Instructions Additional Instructions: Rest, drink lots of fluids: Teas, water, soups, Pedialyte Steamy showers/seem to face break up mucus Avoid contact with others until cough resolved Lots of handwashing and good hygiene Continue [id number] medications for symptomatic relief Tylenol or Motrin for fever and pain Followup with private physician in one to 2 days as needed Return to emergency department for worsened symptoms, fevers, dehydration - Post Discharge Activity
== END 2017-08-19 22:56 | disposition home or self-care (01) ==
LOC: JERFT 20:04
DX: J40 Bronchitis, not specified as acute or chronic (principal)
CPT/HCPCS: 99281-25